=== PATIENT | male | born 1990 | race Two or more races ===

== ENCOUNTER 2018-06-20 19:05 | Emergency (ER) | payer SELFPAY ==
[2018-06-20 19:27] VITALS: BP 133/88; PULSE 96; RESP 20; TEMP 98; O2SAT 97
[2018-06-20 20:20] LABS: BASOPHILS % (AUTO) 1 % (0-3); EOSINOPHILS % (AUTO) 1 % (0-9); HEMATOCRIT 42 % (39-53); LYMPHOCYTES % (AUTO) 11.2 % (10-50); MEAN CORPUSCULAR HEMOGLOBIN 29.6 pg (27.0-32.0); MEAN CORPUSCULAR HGB CONC 33.1 gm/dl (32.0-36.0); MEAN CORPUSCULAR VOLUME 89 fL (80-100); MONOCYTES % (AUTO) 7.3 % (0-12); NEUTROPHILS % (AUTO) 80.1 % (37-80)
[2018-06-20 20:37] LABS: ALBUMIN 3.7 gm/dl (3.4-5.0); BILIRUBIN,TOTAL 0.5 mg/dl (0.2-1.0); CALCIUM 8.4 mg/dl (8.5-10.1); CARBON DIOXIDE 27.9 mEq/L (21-32); CREATININE 1.13 mg/dl (0.80-1.30); POTASSIUM 3.7 mMol/L (3.5-5.1); TOTAL PROTEIN 7.9 gm/dl (6.4-8.2)
[2018-06-20] MEDS ORDERED: CEFTRIAXONE 1 GM PDS IM ONE (20:47)
[2018-06-20] MEDS ORDERED: CEFTRIAXONE 1 GM PDS ONE (20:50)
[2018-06-20] MEDS ORDERED: LIDOCAINE HCL 1% MPF 30 SOL ONE (20:51)
== END 2018-06-20 21:30 | disposition home or self-care (01) | DRG 603 ==
LOC: ED 19:05
DX: L03.116 Cellulitis of left lower limb (principal); S80.12XA Contusion of left lower leg, initial encounter
CPT/HCPCS: 36415; 73700; 80053; 85025; 87040; 87070; 87077; 87186; 87205; 96372; 99283; J0696; J2001